=== PATIENT | female | born 1965 | race Caucasian/White ===

== ENCOUNTER 2018-12-15 04:31 | Emergency (ER) | payer SELFPAY ==
[2018-12-15] MEDS ORDERED: Clindamycin HCl 150 MG Cap PO ONE (05:02)
--- NOTE | 2018-12-15 05:07 | EDM.PDOC ---
ED HPI GENERAL MEDICAL PROBLEM - General Chief Complaint: ENT Problem Stated Complaint: ABCESS TOOTH Time Seen by Provider: 12/15/18 04:47 Source of Information: Reports: Patient, RN Notes Reviewed - History of Present Illness INITIAL COMMENTS - FREE TEXT/NARRATIVE: 53-year-old female comes in with dental discomfort. She has had this for about a week. She states she did have a filling drilled out on this molar about a year ago and that it has given occasional discomfort over the past year but much more intense and relentless this past week or so. there has been some swelling at the base of the tooth. No drainage, no fever or chills. She has been trying to get into a dentist but states appointments are several weeks out at this time. 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 Denies: Abdominal Pain, Vomiting Musculoskeletal: Denies: Neck Pain, Shoulder Pain, Arm Pain Skin: Reports: No Symptoms Neurological: Reports: No Symptoms ED EXAM, ENT - Physical Exam Exam: See Below General Appearance: Alert, No Apparent Distress Eye Exam: Bilateral Eye: PERRL Mouth/Throat: Dental Abcess (there is an area very localized swelling base of left lower anterior molar, no visible drainage at this time, localized tenderness, tooth is not visibly cavitated) Head: Facial Swelling (very mild swelling leftlower mid jaw area, no warmth or erythema) Neck: No: Lymphadenopathy (L), Lymphadenopathy (R) Respiratory/Chest: No Respiratory Distress, Lungs Clear, Normal Breath Sounds Cardiovascular: Regular Rate, Rhythm Neurological: Alert, Oriented, No Motor/Sensory Deficits Skin: Warm, Dry, Normal Color Course - Vital Signs Last Recorded V/S: Last Vital Signs Temp 96.9 F 12/15/18 04:42 Pulse 73 12/15/18 04:42 Resp 14 12/15/18 04:42 BP 130/89 12/15/18 04:42 Pulse Ox 100 12/15/18 04:42 - Orders/Labs/Meds Meds: Medications Discontinued Medications Generic Name Dose Route Start Last Admin Trade Name Jhon PRN Reason Stop Dose Admin Clindamycin HCl 300 mg 12/15/18 05:02 12/15/18 05:07 Cleocin PO 12/15/18 05:03 300 mg ONETIME ONE Administration - Re-Assessments/Exams Free Text/Narrative Re-Assessment/Exam: 12/15/18 05:14 do not see a pus pocket ready for drainage at this time, have given clindamycin 300 mg oral at this time and will continue that 300 tid. Departure - Departure Time of Disposition: 05:03 Disposition: Home, Self-Care 01 Condition: Fair Clinical Impression: Dental infection - Discharge Information Prescriptions: Clindamycin HCl 300 mg PO TID #30 capsule Instructions: Dental Abscess, [id number] Referrals: PCP,None [Primary Care Provider] - Forms: ED Department Discharge, ED Return to Work/School Form Additional Instructions: warm compresses or heating pad about 3 times daily, clindamycin antibiotic 300 mg 3 times daily, continue to alternate tylenol and ibuprofen as needed for discomfort, be sure to take ibuprofen only with food. See dentist later this week if possible, You may find Dr Samir Soriano or one of the dentists in [place] easier to get into. Return to ED as needed.
== END 2018-12-15 05:14 | disposition home or self-care (01) ==
LOC: JD.ED 04:31
DX: K04.7 Periapical abscess without sinus (principal); K02.9 Dental caries, unspecified; F17.210 Nicotine dependence, cigarettes, uncomplicated; Z79.82 Long term (current) use of aspirin
CPT/HCPCS: 99282; A9270

== ENCOUNTER 2023-03-06 16:43 | Emergency (ER) | payer SELFPAY | END 2023-03-06 18:57 | disposition home or self-care (01) | LOC: JD.ED 16:43 | DX: S06.0X1A Concussion with loss of consciousness of 30 minutes or less, initial encounter (principal); S01.21XA Laceration without foreign body of nose, initial encounter; S16.1XXA Strain of muscle, fascia and tendon at neck level, initial encounter; S29.012A Strain of muscle and tendon of back wall of thorax, initial encounter; Z88.2 Allergy status to sulfonamides; Z88.8 Allergy status to other drugs, medicaments and biological substances; Z87.891 Personal history of nicotine dependence; W01.198A Fall on same level from slipping, tripping and stumbling with subsequent striking against other object, initial encounter | CPT/HCPCS: 70450; 70450-26; 72072; 72072-26; 72125; 72125-26; 73030-26-RT; 73030-RT; 73080-26-LT; 73080-LT; 99284 ==